=== PATIENT | female | born 1940 | race African-American/Black ===

== ENCOUNTER 2020-01-26 16:58 | Emergency (ER) | payer OTHER, BC ==
[~2020-01-26] VITALS: Ht 170.2 cm; Wt 79.4 kg
[~2020-01-26 16:58] MED LIST: CARDIZEM CD120 MG; COZAAR 25 MG TA25 M1; ECOTRIN325 MG PO; GLUCOPHAGE1000 MG PO; HUMALOG100 UNIT/1 SUBQ; HYDRALAZINE 2525 MG; KLOR-CON 1010 MEQ; LANTUS100 UNIT/M SUBQ; LASIX 20 MG TAB20 MG; NIACIN125 MG; ORTEZLA; VITAMIN D2000 UNIT PO; ZOCOR20 MG PO
[2020-01-26] MEDS ORDERED: KEFLEX500 M1 PO (18:36)
[2020-01-26 18:40] VITALS: BP 155/70
== END 2020-01-26 18:58 | disposition home or self-care (01) ==
LOC: ER 16:58
DX: S61.212A Laceration without foreign body of right middle finger without damage to nail, initial encounter (principal); I10 Essential (primary) hypertension; E11.9 Type 2 diabetes mellitus without complications; J45.909 Unspecified asthma, uncomplicated; Z90.49 Acquired absence of other specified parts of digestive tract; Z90.710 Acquired absence of both cervix and uterus; Z79.899 Other long term (current) drug therapy; Z88.0 Allergy status to penicillin; Z79.4 Long term (current) use of insulin; W26.8XXA Contact with other sharp object(s), not elsewhere classified, initial encounter; Y93.89 Activity, other specified; Y92.89 Other specified places as the place of occurrence of the external cause; Y99.8 Other external cause status